=== PATIENT | female | born 1950 | race Caucasian/White ===

== ENCOUNTER 2023-07-26 08:55 | Outpatient (AMB) | payer MEDICARE, SELFPAY ==
[2023-07-26 09:03] VITALS: BP 152/69; PULSE 71; RESP 16; O2SAT 99; BMI 24.3
--- NOTE | 2023-07-26 09:03 | MHC.OFFVIS ---
Vital Signs 07/26/23 09:03 Height 5 ft 5 in Weight 146 lb 2 oz BMI 24.3 BP 152/69 H Blood Pressure Location Lt brachial Position Sitting Respiration 16 Pulse 71 Pulse Source Pulse Oximeter Pulse Oximetry (%) 99 Oxygen Delivery Method Room Air Intake Visit Reasons: Back pain Allergies No Known Allergies Allergy (Verified 07/26/23 09:01) HPI Comments Details: Ruby is a very pleasant 72-year-old female who presented to the office today for evaluation management of her lower back pain. Patient reports that she has been suffering with this pain for approximately 5 years though it has started to increasingly get worse and more frequent. Pain across the lower back, worse on the right than the left. Does not radiate down either lower extremity. Denies burning, numbness, tingling of either lower extremity. Pain is worse with weather changes, movements and sitting. Rated today as 2/10, constant but worse after activities. Patient reports that she had an MRI of her back last week, she has not received results from her primary care doctor yet. Results are not available as of this visit. Results of recent x-ray reviewed, as per below. She complained of physical therapy which made it worse. She has the guided exercise program at home but has not been doing it. Patient has not attempted chiropractor, acupuncture, massage or injections. She currently will take Tylenol or Motrin as needed for her pain. She has not tried lidocaine or topical applications. Patient does not use muscle relaxers, she does not like to take medications unless absolutely necessary. She states she has medications at home that were prescribed after surgery but she has not had pain significant enough that she felt the need to take those. In terms of muscle damage condition is described as tugging, pulling, reaching, dull, sore, hurting, aching, heavy Pain is negatively impacting patient's enjoyment of life, general activity. [facility] Medical History (Updated 07/26/23 @ 16:50 by Dorothy Meyer APRN, [employer]) Back pain Left foot pain Scoliosis Anxiety Colon polyps Osteopenia Hyperlipemia HTN (hypertension) Review of Systems Const All systems reviewed & are unremarkable except as noted in HPI and below Physical Exam Vital Signs: Last Vital Signs Pulse 71 07/26/23 09:03 Resp 16 07/26/23 09:03 BP 152/69 H 07/26/23 09:03 Pulse Ox 99 07/26/23 09:03 Oxygen Delivery Method Room Air 07/26/23 09:03 BMI result Body Mass Index 24.3 General: awake, alert, oriented. Answers questions appropriately. Fully engaged in examination. Skin: warm, dry, intact HEENT: Normocephalic. Hearing intact. Cardiac: External chest normal in appearance. Respiratory: No cough, audible wheezing or stridor. Abdomen: without gross distension. MS: No obvious swelling or deformities. Able to stand on bilateral tiptoes and bilateral heels.? Able to transition from sit to stand unassisted. Ambulates with bilaterally normal heel strike and toe off Bilateral lower extremity strength 5/5 Minimally tender over midline lumbar vertebrae and lumbar paraspinal muscles Facet loading positive bilaterally LETY negative bilaterally SLR negative bilaterally Nontender over PSIS Lumbar range of motion intact Neurological: Oriented to person, place, time and situation. Thought process intact. No gait abnormalities appreciated. Psychiatric: Appropriate mood and affect. Good judgment and insight. Results Reviewed Results Reviewed: Assessment & Plan Assessment & Plan (1) Lumbar spondylosis: Code(s): M47.816 - Spondylosis without myelopathy or radiculopathy, lumbar region Category: Medical Plan Ruby is a very pleasant 72-year-old female who presented to the office today for evaluation and management of her chronic lower back pain. History, physical exam and provocative testing consistent with lumbar spondylosis. Patient would like to start with conservative therapy. She has completed PT in the past, will try home exercise program per the guided handouts she was given on discharge from PT. Lidocaine patches ordered, 1 patch daily. On for 12 hours off for 12 hours. Patient will call the office after trying to to 3 weeks of home exercise program. If no improvement will plan for bilateral L3-L4 DR L5 medial branch blocks, fluoroscopy guided with local anesthetic. All questions and concerns were answered, patient agrees with the plan. Follow-up after home exercise program, sooner if needed. Medications: New lidocaine 5% leave on most painful area for up to 12 hrs 1 patch topical DAILY 30 ea 3RF lidocaine 5% leave on most painful area for up to 12 hrs 1 patch topical DAILY 30 ea 3RF Coding Level of Care Code New Pt Level 4 (89482) Diagnoses Lumbar spondylosis M47.816
== END 2023-07-26 09:38 | disposition home or self-care (01) ==
PROVIDERS: PCP Nurse Practitioner; Referring Provider Nurse Practitioner Family; Visit Provider Registered Nurse Emergency
DX: M47.816 Spondylosis without myelopathy or radiculopathy, lumbar region (principal)
CPT/HCPCS: 99204

== ENCOUNTER → 2023-07-26 08:55 | Outpatient (BNVA) | payer MEDICARE, SELFPAY | PROVIDERS: PCP Nurse Practitioner; Referring Provider Nurse Practitioner Family; Visit Provider Registered Nurse Emergency | DX: M47.816 Spondylosis without myelopathy or radiculopathy, lumbar region (principal) | CPT/HCPCS: 99202 ==